=== PATIENT | male | born 1990 ===

== ENCOUNTER 2017-11-12 21:21 | Emergency (ER) | payer SELFPAY ==
[2017-11-12 21:32] VITALS: RESP 16; TEMP 99.3
[2017-11-12] MEDS ORDERED: Sodium Chloride 0.9% 1,000 ML IV STA (22:14)
--- NOTE | 2017-11-12 22:18 | ED PDOC ---
HPI: General Adult Time Seen by Provider: 11/12/17 21:38 Chief Complaint (Nursing): Chest Pain Chief Complaint (Provider): dizziness, chest pain History Per: Patient, Environmental Services Lead History/Exam Limitations: no limitations Onset/Duration Of Symptoms: Hrs (3) Current Symptoms Are (Timing): Still Present Additional Complaint(s): 26 y/o male presents for evaluation of dizziness and chest pain x 3 hours. Patient describes dizziness as "room spinning", with associated nausea. Patient states he then developed left-sided chest pain, shortness of breath, and numbness/tingling to left hand. Patient denies headache, vision changes, vomiting, cough, congestion, changes in bowel movements, leg pain/swelling, recent travel. Past Medical History Reviewed: Historical Data, Nursing Documentation, Vital Signs Vital Signs: Last Vital Signs Temp 99.3 F 11/12/17 21:25 Pulse 86 11/12/17 21:56 Resp 16 11/12/17 21:25 BP 140/62 11/12/17 21:56 Pulse Ox 100 11/12/17 23:49 - Medical History PMH: No Chronic Diseases - Surgical History Surgical History: No Surg Hx - Family History Family History: States: No Known Family Hx - Home Medications Home Medications: Ambulatory Orders Medication Instructions Recorded Meclizine [Meclizine*] 25 mg PO TID PRN #21 tab 11/12/17 - Allergies Allergies/Adverse Reactions: Allergies Allergy/AdvReac Type Severity Reaction Status Date / Time No Known Allergies Allergy Verified 11/12/17 21:25 Review of Systems ROS Statement: Except As Marked, All Systems Reviewed And Found Negative Cardiovascular: Positive for: Chest Pain Respiratory: Positive for: Shortness of Breath Neurological: Positive for: Dizziness Physical Exam - Reviewed Nursing Documentation Reviewed: Yes Vital Signs Reviewed: Yes - Physical Exam Appears: Positive for: Well, Non-toxic, No Acute Distress Head Exam: Positive for: ATRAUMATIC, NORMAL INSPECTION, NORMOCEPHALIC Skin: Positive for: Normal Color Eye Exam: Positive for: Normal appearance, EOMI, PERRL ENT: Positive for: Normal ENT Inspection Cardiovascular/Chest: Positive for: Regular Rate, Rhythm Respiratory: Positive for: Normal Breath Sounds Gastrointestinal/Abdominal: Positive for: Normal Exam Back: Positive for: Normal Inspection Extremity: Positive for: Normal ROM Neurologic/Psych: Positive for: Alert, Oriented (x3). Negative for: Motor/ Sensory Deficits - Laboratory Results Result Diagrams: 11/12/17 22:56 11/12/17 22:56 - ECG ECG: Positive for: Viewed By Me (reviewed by ED attending) ECG Rhythm: Positive for: Sinus Rhythm O2 Sat by Pulse Oximetry: 100 - Radiology X-Ray: Viewed By Me X-Ray Interpretation: No Acute Disease - Progress ED Course And Treament: labs, ekg, chest xray, IV fluids, meclizine PO On re-eval, patient states dizziness improved. Tolerating PO Patient educated on findings, discharged with rx Meclizine. Advised follow up [facility] 2-3 days Return precautions given Disposition - Clinical Impression Clinical Impression: Chest pain, Dizziness - Patient ED Disposition Is Patient to be Admitted: No Counseled Patient/Family Regarding: Studies Performed, Diagnosis, Need For Followup, Rx Given - Disposition Referrals: [facility] [Outside] Disposition: Routine/Home Disposition Time: 00:13 Condition: IMPROVED Prescriptions: Meclizine [Meclizine*] 25 mg PO TID PRN #21 tab PRN Reason: Dizziness Instructions: Vertigo (a Type of Dizziness), Chest Pain Print Language: TURKMEN
[2017-11-12 23:02] LABS: BASO # 0.1 K/uL (0.0-0.2); BASO % 0.5 % (0.0-2.0); EOS # 0.2 K/uL (0.0-0.7); EOS % 1.5 % (0.0-4.0); HEMOGLOBIN 13.5 g/dL (12.0-18.0); LYMPH # 2.5 K/uL (1.0-4.3); LYMPH % 19.5 % (20.0-40.0); MEAN CELL VOLUME 88.3 fl (80.0-94.0); MONO % 7.8 % (0.0-10.0); NEUT # 9.2 K/uL (1.8-7.0); NEUT % 70.7 % (50.0-75.0); RBC 4.52 Mil/uL (4.40-5.90); RED CELL DISTRIBUTION WIDTH 13.6 % (11.5-14.5)
[2017-11-12 23:14] LABS: ALB/GLOB RATIO 1.5 (1.0-2.1); ALBUMIN 4.6 g/dL (3.5-5.0); ALT/SGPT 38 U/L (21-72); AST/SGOT 47 U/L (17-59); BLOOD UREA NITROGEN 17 mg/dl (9-20); CALCIUM 9.5 mg/dL (8.4-10.2); GFR AFRICAN-AMERICAN > 60; GFR NON-AFRICAN AMERICAN > 60
[2017-11-13 02:11] VITALS: BP 134/72; PULSE 88; O2SAT 98
--- NOTE | 2017-11-13 16:13 | RAD ---
Date of service: 11/12/2017 HISTORY: chest pain COMPARISON: No prior. TECHNIQUE: Chest PA and lateral FINDINGS: LUNGS: No active pulmonary disease. PLEURA: No significant pleural effusion identified. No pneumothorax apparent. CARDIOVASCULAR: Normal OSSEOUS STRUCTURES: No significant abnormalities. VISUALIZED UPPER ABDOMEN: Normal. OTHER FINDINGS: None. IMPRESSION: No active disease.
== END 2017-11-13 02:11 | disposition home or self-care (01) ==
LOC: H.ER 21:21
DX: R07.9 Chest pain, unspecified (principal); R42 Dizziness and giddiness
CPT/HCPCS: 71046; 80053; 82948; 84484; 85025; 99285; J7030